=== PATIENT | male | born 1980 | race Asian ===

== ENCOUNTER 2017-11-22 17:20 | Emergency (ER) | payer OTHER ==
[~2017-11-22] VITALS: Ht 182.9 cm; Wt 87.1 kg
[2017-11-22 17:34] VITALS: TEMP 97.9
[2017-11-22 17:51] LABS: PLATELET COUNT 278 K/uL (142-355)
[2017-11-22 17:53] LABS: POTASSIUM 3.8 mmol/L (3.6-5.2)
[2017-11-22 18:11] VITALS: BP 141/78
== END 2017-11-22 18:40 | disposition home or self-care (01) ==
LOC: ED 17:20
DX: J06.9 Acute upper respiratory infection, unspecified (principal); J45.901 Unspecified asthma with (acute) exacerbation
CPT/HCPCS: 36415; 80053; 85027; 94664; 96374; 99284; J2930

== ENCOUNTER 2018-07-01 12:13 | Emergency (ER) | payer OTHER ==
[~2018-07-01] VITALS: Ht 182.9 cm; Wt 87.1 kg
[2018-07-01 12:20] VITALS: TEMP 97
[2018-07-01 13:02] LABS: PLATELET COUNT 275 K/uL (142-355)
[2018-07-01 13:14] LABS: POTASSIUM 3.7 mmol/L (3.6-5.2)
[2018-07-01 14:29] VITALS: BP 122/92
== END 2018-07-01 14:30 | disposition home or self-care (01) ==
LOC: ED 12:13
PROVIDERS: Emergency Medicine
DX: M65.872 Other synovitis and tenosynovitis, left ankle and foot (principal)
CPT/HCPCS: 36415; 80053; 84550; 85027; 85651; 86430; 99283

== ENCOUNTER 2023-03-16 07:22 | Emergency (ER) | payer OTHER ==
[~2023-03-16] VITALS: Ht 182.9 cm; Wt 85.7 kg
[2023-03-16 08:28] VITALS: BP 132/89; TEMP 98
== END 2023-03-16 08:28 | disposition home or self-care (01) ==
LOC: ED 07:22
DX: J40 Bronchitis, not specified as acute or chronic (principal); J06.9 Acute upper respiratory infection, unspecified
CPT/HCPCS: 94664; 99283; J1100